=== PATIENT | female | born 1995 | race Caucasian/White ===

== ENCOUNTER 2022-11-19 09:35 | Outpatient (CLI) | payer OTHER, SELFPAY | END 2022-11-19 09:36 | disposition home or self-care (01) | LOC: NFLDREF 14:23 | PROVIDERS: PCP Physician Assistant Medical; Referring Provider Physician Assistant Medical; Visit Provider Physician Assistant Medical | DX: Z00.00 Encounter for general adult medical examination without abnormal findings (principal); E07.9 Disorder of thyroid, unspecified; Z13.6 Encounter for screening for cardiovascular disorders; Z13.1 Encounter for screening for diabetes mellitus | CPT/HCPCS: 80061; 82947; 84439; 84443 ==